=== PATIENT | female | born 1995 | race Caucasian/White ===

== ENCOUNTER → 2020-12-29 13:52 | Outpatient (BNVA) | payer BC, MEDICAID, SELFPAY | PROVIDERS: Visit Provider Nurse Practitioner Women's Health | DX: Z34.80 Encounter for supervision of other normal pregnancy, unspecified trimester (principal) | CPT/HCPCS: 81000 ==

== ENCOUNTER → 2021-01-28 08:12 | Outpatient (BNVA) | payer BC, MEDICAID, SELFPAY | PROVIDERS: Visit Provider Obstetrics & Gynecology | DX: Z34.92 Encounter for supervision of normal pregnancy, unspecified, second trimester (principal) | CPT/HCPCS: 80307; 81000; 85027; 86592; 86762; 86803; 86850; 86900; 87086; 87340; 87491; 87591; 87661; 87806; 88175 ==

== ENCOUNTER → 2021-02-25 13:41 | Outpatient (BNVA) | payer BC, MEDICAID, SELFPAY | PROVIDERS: Visit Provider Obstetrics & Gynecology | DX: Z34.80 Encounter for supervision of other normal pregnancy, unspecified trimester (principal) | CPT/HCPCS: 81000 ==

== ENCOUNTER → 2021-03-26 09:26 | Outpatient (BNVA) | payer BC, MEDICAID, SELFPAY | PROVIDERS: Visit Provider Obstetrics & Gynecology | DX: Z34.80 Encounter for supervision of other normal pregnancy, unspecified trimester (principal) | CPT/HCPCS: 81000 ==

== ENCOUNTER → 2021-04-19 11:54 | Outpatient (BNVA) | payer BC, MEDICAID, SELFPAY | PROVIDERS: Visit Provider Obstetrics & Gynecology | DX: O26.899 Other specified pregnancy related conditions, unspecified trimester (principal); Z67.91 Unspecified blood type, Rh negative; E66.9 Obesity, unspecified; Z87.59 Personal history of other complications of pregnancy, childbirth and the puerperium; O09.899 Supervision of other high risk pregnancies, unspecified trimester; O13.9 Gestational [pregnancy-induced] hypertension without significant proteinuria, unspecified trimester | CPT/HCPCS: 81000; 82950; 85025; 86850 ==

== ENCOUNTER → 2021-05-03 11:02 | Outpatient (BNVA) | payer BC, MEDICAID, SELFPAY | PROVIDERS: Visit Provider Obstetrics & Gynecology | DX: Z34.80 Encounter for supervision of other normal pregnancy, unspecified trimester (principal) | CPT/HCPCS: 81000 ==

== ENCOUNTER → 2021-05-17 11:14 | Outpatient (BNVA) | payer BC, MEDICAID, SELFPAY | PROVIDERS: Visit Provider Obstetrics & Gynecology | DX: Z34.90 Encounter for supervision of normal pregnancy, unspecified, unspecified trimester (principal) | CPT/HCPCS: 81000 ==

== ENCOUNTER → 2021-06-04 09:31 | Outpatient (BNVA) | payer BC, MEDICAID, SELFPAY | PROVIDERS: Visit Provider Obstetrics & Gynecology | DX: Z34.80 Encounter for supervision of other normal pregnancy, unspecified trimester (principal) | CPT/HCPCS: 81000 ==

== ENCOUNTER → 2021-06-14 11:52 | Outpatient (BNVA) | payer BC, MEDICAID, SELFPAY | PROVIDERS: Visit Provider Obstetrics & Gynecology | DX: Z34.90 Encounter for supervision of normal pregnancy, unspecified, unspecified trimester (principal) | CPT/HCPCS: 81000; 87081 ==

== ENCOUNTER → 2021-06-28 11:56 | Outpatient (BNVA) | payer BC, MEDICAID, SELFPAY | PROVIDERS: Visit Provider Obstetrics & Gynecology | DX: Z34.80 Encounter for supervision of other normal pregnancy, unspecified trimester (principal) | CPT/HCPCS: 81000; 87086 ==

== ENCOUNTER 2021-06-29 17:11 | Inpatient (IN) | payer BC, MEDICAID, SELFPAY ==
[2021-06-29] VITALS (50 sets, daily range): BP systolic 104–176; BP diastolic 55–96; PULSE 73–136; RESP 15; O2SAT 90–100; BMI 36.7
[2021-06-29 17:56] LABS: Basophils # 0.1 10^3/uL (0.0-0.1); Basophils % 0.4 %; Eosinophils # 0.6 10^3/uL (0.0-0.8); Eosinophils % 2.5 %; Hematocrit 31.4 % (37.0-47.0); Hemoglobin 9.7 g/dL (11.5-15.3); Lymphocytes # 3.6 10^3/uL (0.8-4.8); Lymphocytes % 16.3 %; Mean Corpuscular HGB Conc 30.9 g/dL (30.0-36.0); Mean Corpuscular Hemoglobin 27.2 pg (28.0-34.0); Mean Corpuscular Volume 88.2 fl (81-99); Mean Platelet Volume 11.7 fL (7.4-10.4); Monocytes # 1.9 10^3/uL (0.2-0.9); Monocytes % 8.3 %; Neutrophils # 15.57 10^3/uL (1.8-7.7); Nucleated Red Blood Cells % 0 %; Platelet Count 381 10^3/cmm (130-400); Red Blood Count 3.56 10^6/uL (4.1-5.3); Red Cell Distribution Width 15.1 % (12.1-15.1); White Blood Count 22.2 10^3/uL (4.0-10.0)
[2021-06-29 18:25] LABS: Alanine Aminotransferase 9 U/L (0-33); Albumin Level 3.5 g/dL (3.5-5.2); Alkaline Phosphatase 258 IU/L (35-105); Anion Gap 17.1 (5-19); Aspartate Amino Transferase 12 U/L (0-32); Blood Urea Nitrogen 7 mg/dL (6-20); Calcium 8.5 mg/dL (8.5-10.5); Carbon Dioxide 22 mmol/L (22-29); Chloride 103 mmol/L (98-107); Globulin 3.1 g/dL (1.3-4.6); Glomerular Filtration Rate 197.8 mL/min (90-130); Glucose 92 mg/dL (65-115); Osmolality Calculated 284 mOsm/kg (285-295); Potassium 4.1 mmol/L (3.5-5.1); Sodium 138 mmol/L (136-145); Total Bilirubin 0.2 mg/dL (0.15-1.2); Total Protein 6.6 g/dL (6.6-8.7); Uric Acid 3.3 mg/dL (2.4-5.7)
[2021-06-29 18:28] LABS: Add Urine Microscopic? YES; Bilirubin Urine Neg (Negative); Blood Urine 2+ (Negative); Glucose Urine UA Norm (Normal); Ketones Urine Negative (Negative); Leukocyte Esterase Urine 1+ (Negative); Nitrate Urine Negative (Negative); Protein Urine 1+ (Negative); Urine Appearance Hazy (CLEAR); Urine Color Yellow (Yellow); Urobilinogen Urine 1 mg/dL (Negative); pH Urine 7 (5-7)
[2021-06-29 18:29] LABS: Add Urine Culture? No; Amorphous Sediment Urine 3+ /hpf; Bacteria Urine 2+ /hpf; Mucus Urine 2+ /hpf; RBC Urine 0-4 /hpf (0-2); Squamous Epithelial Cell Urine 15-25 /hpf (0-5); WBC Urine 0-4 /hpf (0-5)
[2021-06-29 18:36] LABS: Urine Creatinine 13 mg/dL (28-217); Urine Protein Random 17 mg/dL
[2021-06-29 18:37] LABS: UPRO/UCREAT Ratio 1.31 mg/mg CR
[2021-06-29 19:59] LABS: Urine Creatinine 43 mg/dL (28-217); Urine Protein Random 7 mg/dL
--- NOTE | 2021-06-29 19:59 | PM.OPHPUD ---
Labor & Delivery H&P Update Date of Procedure: June 29, 2021 Date H&P Performed: 06/28/21 H&P update information: I have reviewed H&P completed within last 30 days, I have examined patient prior to procedure and Changes to prior documentation as noted here Changes to previous documentation: cervix is /0 Admission Diagnosis: At 38w4d Primary indication for procedure: labile blood pressures and proteinuria Planned procedure: induction of labor for mild preeclampsia
[2021-06-29 20:01] LABS: UPRO/UCREAT Ratio 0.16 mg/mg CR
[2021-06-29] MEDS: lactated ringers 1,000 ML 999 ML IV ×2 (20:32→21:33)
--- NOTE | 2021-06-29 21:46 | P.ANESASSM_ITS ---
Pre-Anesthetic Assessment Height/Weight: Height 1.63 m Weight 97.069 kg Pulse BP Pulse Ox 109 H 150/76 97 06/29/21 21:40 06/29/21 21:43 06/29/21 21:39 Preop Diagnosis: Labor pain JARRED Was Beta Courtney taken within 24 hours: N/A Was Clonidine taken within 24 hours: N/A Social Tobacco and No alcohol 0.5 pack(s) per day Exam alert, oriented x 3, clear to auscultation bilaterally and regular rate & rhythm Airway Submandibular: within normal limits Cervical ROM: within normal limits Mallampati: Class II Dentition: full History/ROS No significant history except as noted and No significant complaints Pulmonary None reported CV/HEM Hypertension (gestational) None reported Hepatic None reported GI Gastroesophageal Reflux Disease Metabolic None reported Musc/skel None reported Neuropsych None reported Anesthetic Plan ASA status: 2 Anesthesia: Regional (specify below) Other: JARRED Risk of > 500 ml blood loss (7ml/kg in children): No Medications/Allergies Home Medications Medication Instructions Recorded Confirmed Last Taken Type prenat.vits,shagufta,tho-raic-zndvo 1 tab PO DAILY 12/29/20 06/28/21 Unknown History promethazine 25 mg tablet 25 mg PO Q6H PRN #30 tab 05/03/21 06/28/21 Unknown Rx ondansetron HCl 4 mg tablet 4 mg PO Q6H #30 tab 05/05/21 06/28/21 Unknown Rx (Zofran) Allergies Allergy/AdvReac Type Severity Reaction Status Date / Time latex Allergy hives Verified 06/28/21 11:18 Current Medications Generic Name Dose Route Start Last Admin Trade Name Freq PRN Reason Stop Dose Admin Lactated Ringer's 1,000 mls @ 999 mls/hr 06/29/21 20:21 06/29/21 20:32 Lactated Ringers IV 999 mls/hr .Q1H1M PRN Administration See label comments PFSH Anesthesia Medical History No pertinent past medical history neghx: htn,dm,thyroid,dvt/pe PCP: None Surgical History No pertinent past surgical history Family History Family/Other Breast cancer Maternal Aunt--dx age mid 30's Grandfather Colon cancer Maternal--dx age 55 Diabetes Maternal Hypertension Maternal Denies family history of Ovarian cancer Heart disease Hypercholesteremia Uterine cancer Thyroid disease Stroke Female Reproductive History : 2 Data Anesthesia : 06/29/21 17:00 06/29/21 17:00 Short CBC 06/29/21 Range/Units 17:00 WBC 22.2 H (4.0-10.0) 10^3/uL Hgb 9.7 L (11.5-15.3) g/dL Hct 31.4 L (37.0-47.0) % MCV 88.2 (81-99) fl Plt Count 381 (130-400) 10^3/cmm Neut % (Auto) 70.0 % Neut # (Auto) 15.57 H (1.8-7.7) 10^3/uL BMP 06/29/21 17:00 Sodium 138 Potassium 4.1 Chloride 103 Carbon Dioxide 22 BUN 7 Creatinine 0.4 L Glucose 92 Calcium 8.5 Liver Function 06/29/21 Range/Units 17:00 Total Bilirubin 0.2 (0.15-1.2) mg/dL AST 12 (0-32) U/L ALT 9 (0-33) U/L Alkaline Phosphatase 258 H (35-105) IU/L Albumin 3.5 (3.5-5.2) g/dL Urine 06/29/21 Range/Units 17:30 Urine Color Yellow (Yellow) Urine Appearance Hazy A (CLEAR) Urine pH 7 (5-7) Ur Specific [place] 1.010 (1.005-1.030) Urine Protein 1+ H (Negative) Urine Glucose (UA) Norm (Normal) Urine Ketones Negative (Negative) Urine Nitrate Negative (Negative) Urine Bilirubin Neg (Negative) Ur Leukocyte Esterase 1+ H (Negative) Urine RBC 0-4 H (0-2) /hpf Urine WBC 0-4 H (0-5) /hpf Cardiac Studies: No Data to Display
--- NOTE | 2021-06-29 21:49 | ANES.PROC ---
Anesthesia Procedures Procedure/Date: 06/29/21 Epidural: Time Out Performed: Yes Consents Signed: Procedure Consent Consent: requested by attending/covering physician, from patient, risks and benefits reviewed and patient agrees to proceed Lumbar Level: L3-L4 Epidural position: sitting Epidural procedure: sterile prep of area, 1% lidocaine to numb the area, 18 g needle, neg for paresthesia, test dose given, 1.5% xylocaine 1:200k epi (5cc), 0.2% Ropivacaine bolus ml (4cc and fentanyl 100 mcg), no systemic response, sterile dressing applied, L.U.D. no apparent complications and 0.2% Ropiavacaine @ mls/hr (13 cc/hour. JORDAN at 7cm. Pt tolerated well)
[2021-06-29] MEDS: oxytocin 30 UNIT/500 ML BAG 600 UNIT IV (23:06)
--- NOTE | 2021-06-29 23:25 | PM.DELIVERY ---
Delivery Note: Date of delivery: June 29, 2021 Pre-delivery diagnoses: iup@ 38w4d, labile blood pressures with proteinuria Post-delivery diagnoses: same-delivered Procedure: removal of suspicious lesion on buttocks Delivering Physician: Dr. garcia Estimated blood loss (mL): 100 Pre-Delivery Course: The patient was admitted for induction at term for elevated blood pressures (labile) and proteinuria. She had AROM performed. She had complete cervical dilation about 3 hours later and began pushing Delivery: The patient had complete cervical dilation and began to push. The head delivered in the HEIDI position over an intact perineum under epidural anesthesia. The nose and mouth were bulb suctioned. The shoulders and body delivered atraumatically. The baby was placed onto the mother's abdomen. The cord was clamped and cut. Cord blood was obtained. The placenta delivered spontaneously. It was inspected and found to be intact. Inspection of the perineum revealed no repair was required. Estimated blood loss 100 mL. Apgars on baby were 8 at 1 minute and 9 at 5 minutes. Weight of baby is 8 pounds 9 ounces. Mother and baby were stable post delivery. The patient had a suspicious growth on her right buttocks. When asked about it, she reported that during the , it had increased greatly in size. It did appear to be a skin tag, but it was abnormal in appearance. She requested for it to be removed. Written consent was obtained and witnessed. The area was cleansed with betadine. Using a scalpel, the lesion was removed and sent to pathology. Pressure was placed onto the bed of the lesion. A single stitch of 3-O vicryl was used to close the base and a pressure dressing with protective bandage placed over it. The patient tolerated the procedure well. Count was correct post procedure. 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
[2021-06-30] VITALS (14 sets, daily range): BP systolic 111–160; BP diastolic 56–84; PULSE 78–112; RESP 16; TEMP 36.2
--- NOTE | 2021-06-30 08:42 | P.PN_ITS ---
Vitals/I&O/Wt Last Vital Signs Pulse 95 06/30/21 07:04 Resp 15 06/29/21 23:24 BP 111/56 06/30/21 07:04 Pulse Ox 96 06/29/21 22:42 06/29/21 06/30/21 06/30/21 22:59 06:59 14:59 Intake Total 1000 / 1000 Output Total 350 / 350 Balance 1000 / 1000 -350 / 650 Weight last 48 hrs Weight 214 lb Physical Exam Narrative: The patient is doing well this morning. No concerns Const: COMMON NORMALS: no acute distress, patient oriented x3, no limitations, healthy appearing, alert and well nourished GENERAL APPEARANCE: cooperative, comfortable, well kempt and well developed ORIENTATION/CONSCIOUSNESS: Yes awake, Yes oriented to person, Yes oriented to place and Yes oriented to time Resp: COMMON NORMALS: normal respiratory effort EFFORT & INSPECTION: Yes able to speak in complete sentences GI: COMMON NORMALS: Soft to palpation and non-tender PALPATION: Yes Soft to palpation Extremity: COMMON NORMALS: no calf tenderness Neuro: COMMON NORMALS: patient oriented x3 SENSORIUM/ORIENTATION: Yes alert, Yes oriented to person, Yes oriented to place and Yes oriented to time Psych: APPEARANCE: Yes well kempt Urinary Catheter Management: Tovar: Cath Placed During This Visit: yes, but has since been removed by the nurse Reason for Continuing Indwelling Catheter: Other Urinary Catheter Date of Insertion: 06/29/21 Urinary Catheter Time of Insertion: 22:13 Date Urinary Catheter Removed: 06/29/21 Time Urinary Catheter Discontinued: 23:00 Data : 06/29/21 17:00 06/29/21 17:00 Attestations Medical Necessity Statement*: she will be her two midnights Coding Level of Care Code Acute 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
[2021-06-30] MEDS: prenatal vitamin Capsule 1 CAP PO (09:42)
[2021-06-30] MEDS: ibuprofen 800 mg tablet PO ×3 (09:42→21:09)
[2021-06-30] MEDS: docusate sodium 100 mg Capsule PO (09:42)
[2021-06-30 11:53] LABS: Hematocrit 28.5 % (37.0-47.0); Mean Corpuscular HGB Conc 31.6 g/dL (30.0-36.0); Mean Corpuscular Hemoglobin 27.8 pg (28.0-34.0); Mean Platelet Volume 11.5 fL (7.4-10.4); Platelet Count 310 10^3/cmm (130-400); Red Blood Count 3.24 10^6/uL (4.1-5.3); Red Cell Distribution Width 14.8 % (12.1-15.1); White Blood Count 23.2 10^3/uL (4.0-10.0)
--- NOTE | 2021-06-30 15:51 | ANE.PACU2 ---
Inpatient post-anesthesia follow up: Airway intact: Yes Vital signs: Temperature Pulse Rate 94 Respiratory Rate 15 Blood Pressure 119/72 Pulse Oximetry 96 Oxygen Delivery Me thod Room Air Oxygen Flow Rate Fraction of Inspir ed Oxygen Hydration adequate: Yes Nausea and vomiting: No Pain level: 1 Mental status: Baseline
[2021-06-30] MEDS: benzocaine-menthol 78 gm Canister 1 SPRAY TOPICAL (21:10)
[2021-06-30] MEDS: lanolin oint 7 gm 1 APPLIC TOPICAL (21:10)
[2021-07-01 04:06] VITALS: BP 123/75; PULSE 81
--- NOTE | 2021-07-01 08:19 | PM.DCS ---
Discharge Providers Date of Admission: 06/29/21 17:11 Date of Discharge: July 01, 2021 Attending Provider at Admission: Janie Hernandez MD Attending Provider at Discharge: Janie Hernandez MD Diagnoses at Discharge Discharge Diagnosis (1) Gestational hypertension: Status: Acute Reason for Visit Reason for Visit: Induction of Labor Hospital Course Hospital Course The patient was admitted for induction for gestational hypertension. She had a normal vaginal delivery. She did well and was ready for discharge on day #2 Physical Exam Narrative: The patient is doing well this morning. No concerns. Baby has been diagnosed with a cephalohematoma Const: COMMON NORMALS: no acute distress, patient oriented x3, no limitations, healthy appearing, alert and well nourished GENERAL APPEARANCE: cooperative, comfortable, well kempt and well developed ORIENTATION/CONSCIOUSNESS: Yes awake, Yes oriented to person, Yes oriented to place and Yes oriented to time Resp: COMMON NORMALS: normal respiratory effort EFFORT & INSPECTION: Yes able to speak in complete sentences GI: COMMON NORMALS: Soft to palpation and non-tender PALPATION: Yes Soft to palpation Extremity: COMMON NORMALS: no calf tenderness Neuro: COMMON NORMALS: patient oriented x3 SENSORIUM/ORIENTATION: Yes alert, Yes oriented to person, Yes oriented to place and Yes oriented to time Psych: APPEARANCE: Yes well kempt Urinary Catheter Management: Tovar: Cath Placed During This Visit: yes, but has since been removed by the nurse Reason for Continuing Indwelling Catheter: Other Urinary Catheter Date of Insertion: 06/29/21 Urinary Catheter Time of Insertion: 22:13 Date Urinary Catheter Removed: 06/29/21 Time Urinary Catheter Discontinued: 23:00 Discharge Data Studies Completed and Pending Pending at discharge Category Date Time Status Pathology: Surgical [PTH] Stat Pth 06/29/21 23:10 Received Laboratory Results WBC 23.2 10^3/uL (4.0-10.0) H 06/30/21 11:36 RBC 3.24 10^6/uL (4.1-5.3) L 06/30/21 11:36 Hgb 9.0 g/dL (11.5-15.3) L 06/30/21 11:36 Hct 28.5 % (37.0-47.0) L 06/30/21 11:36 MCV 88.0 fl (81-99) 06/30/21 11:36 MCH 27.8 pg (28.0-34.0) L 06/30/21 11:36 MCHC 31.6 g/dL (30.0-36.0) 06/30/21 11:36 RDW 14.8 % (12.1-15.1) 06/30/21 11:36 Plt Count 310 10^3/cmm (130-400) 06/30/21 11:36 MPV 11.5 fL (7.4-10.4) H 06/30/21 11:36 Neut % (Auto) 70.0 % 06/29/21 17:00 Lymph % (Auto) 16.3 % 06/29/21 17:00 [place] % (Auto) 8.3 % 06/29/21 17:00 Eos % (Auto) 2.5 % 06/29/21 17:00 Baso % (Auto) 0.4 % 06/29/21 17:00 Neut # (Auto) 15.57 10^3/uL (1.8-7.7) H 06/29/21 17:00 Lymph # (Auto) 3.6 10^3/uL (0.8-4.8) 06/29/21 17:00 [place] # (Auto) 1.9 10^3/uL (0.2-0.9) H 06/29/21 17:00 Eos # (Auto) 0.6 10^3/uL (0.0-0.8) 06/29/21 17:00 Baso # (Auto) 0.1 10^3/uL (0.0-0.1) 06/29/21 17:00 Nucleated RBC % (auto) 0 % 06/29/21 17:00 Nucleated RBCs # 0.0 /100WBC 06/29/21 17:00 Sodium 138 mmol/L (136-145) 06/29/21 17:00 Potassium 4.1 mmol/L (3.5-5.1) 06/29/21 17:00 Chloride 103 mmol/L (98-107) 06/29/21 17:00 Carbon Dioxide 22 mmol/L (22-29) 06/29/21 17:00 Anion Gap 17.1 (5-19) 06/29/21 17:00 BUN 7 mg/dL (6-20) 06/29/21 17:00 Creatinine 0.4 mg/dL (0.5-0.9) L 06/29/21 17:00 GFR Calculation 197.8 mL/min (90-130) H 06/29/21 17:00 Glucose 92 mg/dL (65-115) 06/29/21 17:00 Calculated Osmolality 284 mOsm/kg (285-295) L 06/29/21 17:00 Uric Acid 3.3 mg/dL (2.4-5.7) 06/29/21 17:00 Calcium 8.5 mg/dL (8.5-10.5) 06/29/21 17:00 Total Bilirubin 0.2 mg/dL (0.15-1.2) 06/29/21 17:00 AST 12 U/L (0-32) 06/29/21 17:00 ALT 9 U/L (0-33) 06/29/21 17:00 Alkaline Phosphatase 258 IU/L (35-105) H 06/29/21 17:00 Total Protein 6.6 g/dL (6.6-8.7) 06/29/21 17:00 Albumin 3.5 g/dL (3.5-5.2) 06/29/21 17:00 Globulin 3.1 g/dL (1.3-4.6) 06/29/21 17:00 Urine Color Yellow (Yellow) 06/29/21 17:30 Urine Appearance Hazy (CLEAR) A 06/29/21 17:30 Urine pH 7 (5-7) 06/29/21 17:30 Ur Specific [place] 1.010 (1.005-1.030) 06/29/21 17:30 Urine Protein 1+ (Negative) H 06/29/21 17:30 Urine Glucose (UA) Norm (Normal) 06/29/21 17:30 Urine Ketones Negative (Negative) 06/29/21 17:30 Urine Blood 2+ (Negative) H 06/29/21 17:30 Urine Nitrate Negative (Negative) 06/29/21 17:30 Urine Bilirubin Neg (Negative) 06/29/21 17:30 Urine Urobilinogen 1 mg/dL (Negative) H 06/29/21 17:30 Ur Leukocyte Esterase 1+ (Negative) H 06/29/21 17:30 Urine RBC 0-4 /hpf (0-2) H 06/29/21 17:30 Urine WBC 0-4 /hpf (0-5) H 06/29/21 17:30 Ur Squamous Epith Cells 15-25 /hpf (0-5) H 06/29/21 17:30 Amorphous Sediment 3+ /hpf 06/29/21 17:30 Urine Bacteria 2+ /hpf (NONE) H 06/29/21 17:30 Urine Mucus 2+ /hpf 06/29/21 17:30 U Random Total Protein 7 mg/dL 06/29/21 19:20 Urine Creatinine 43 mg/dL (28-217) 06/29/21 19:20 Protein/Creatinin Ratio 0.16 mg/mg CR 06/29/21 19:20 Blood Type O Negative 06/29/21 17:00 Rho(D) Type Negative 06/29/21 17:00 Antibody Screen Negative 06/29/21 17:00 Screen Negative (Negative) 06/30/21 11:36 Vitals Last Vital Signs Temp 97.2 F L 06/30/21 21:12 Pulse 81 07/01/21 04:06 Resp 16 06/30/21 23:24 BP 123/75 07/01/21 04:06 Pulse Ox 96 06/29/21 22:42 Discharge Plan Discharge Patient Disposition: Home Condition: Stable Prescriptions: Continued promethazine 25 mg tablet 25 mg PO Q6H PRN (Reason: nausea and vomiting) Qty: 30 0RF ondansetron HCl [Zofran] 4 mg tablet 4 mg PO Q6H Qty: 30 2RF prenat.vits,shagufta,idg-vvkv-hafgj Tablet 1 tab PO DAILY 0RF Discharge Orders: Discharge Order (Routine); Ordered 07/01/21 Ordered By: Janie Hernandez Patient Instructions: Depression (DC), Bleeding (DC), Preeclampsia and Eclampsia After Delivery (GEN), OB Discharge Report, OB Food/Drug Interaction Guide, OB Care at Home, Opioid Safety, OB Home Care, OB Vaginal Deliveries - [facility] Discharge Attestations Time Spent in Discharge Care*: less than 30 min Quality Metrics Clinical Quality Measures [ No reported AMI, CVA or VTE this stay] Coding Level of Care Code Acute Chg FW DC note Diagnoses Gestational hypertension O13.9
[2021-07-01] MEDS: ibuprofen 800 mg tablet PO (09:05)
[2021-07-01] MEDS: prenatal vitamin Capsule 1 CAP PO (09:05)
[2021-07-01] MEDS: docusate sodium 100 mg Capsule PO (09:06)
[2021-07-01 10:01] VITALS: BP 128/69; PULSE 72
[2021-07-01 10:07] VITALS: BP 126/78; PULSE 67; RESP 16; TEMP 36.6; O2SAT 96
[2021-07-01 11:32] VITALS: BP 119/81; PULSE 76
[2021-07-01 11:34] VITALS: BP 119/81; PULSE 81; RESP 16; TEMP 36.5; O2SAT 98
[2021-07-01 12:57] VITALS: BP 119/81; PULSE 81; RESP 16; TEMP 36.5; O2SAT 98
== END 2021-07-01 12:53 | disposition home or self-care (01) | DRG 807 ==
LOC: OPOB 17:11 → OBGYN 06-30 10:25
PROVIDERS: Admitting Provider Obstetrics & Gynecology; Visit Provider Obstetrics & Gynecology
DX: O13.4 Gestational [pregnancy-induced] hypertension without significant proteinuria, complicating childbirth (principal); Z37.0 Single live birth; Z3A.38 38 weeks gestation of pregnancy; O99.72 Diseases of the skin and subcutaneous tissue complicating childbirth; L98.9 Disorder of the skin and subcutaneous tissue, unspecified; O99.334 Smoking (tobacco) complicating childbirth; F17.210 Nicotine dependence, cigarettes, uncomplicated; O99.214 Obesity complicating childbirth; E66.9 Obesity, unspecified; O99.02 Anemia complicating childbirth; D64.9 Anemia, unspecified
CPT/HCPCS: 36415; 51702; 59025; 59409; 80053; 81001; 82570; 84156; 84550; 85025; 85027; 85460; 86850; 86900; 88304; 90384; 96374; J2795; J3010